=== PATIENT | female | born 1975 | race African-American/Black ===

== ENCOUNTER → 2016-09-30 | Outpatient (CLI) | payer BC, OTHER ==
--- NOTE | 2016-10-06 16:23 | WOMENS IMAGING REPORT ---
EXAM DESCRIPTION: BILAT SCREENING MAMMO W/CAD COMPLETED DATE/TIME: 09/30/2016 9:23 am REASON FOR STUDY: ROUTINE SCREENING; Z12.31 Z12.31 ENCNTR SCREEN MAMMOGRAM FOR MALIGNANT NEOPLASM O F CHERELLE COMPARISON: None. TECHNIQUE: Standard craniocaudal and mediolateral oblique views of each breast recorded using [employer] acquisition. LIMITATIONS: None. FINDINGS: No masses, calcifications or architectural distortion. No areas of suspicion. Read with the assistance of CAD. .[facility] - R2 Cenova Version 1.3 .[facility] Imaging - R2 Cenova Version 1.3 .[facility] - R2 Cenova Version 2.4 .[facility] [place] C[place]ova Version 2.4 .[facility] - R2 [employer] Version 9.2 IMPRESSION: NORMAL MAMMOGRAM. BIRADS 1. BREAST DENSITY: b. There are scattered areas of fibroglandular density. BIRAD: 1 NEGATIVE RECOMMENDATION: ROUTINE SCREENING COMMENT: The patient has been notified of the results by letter per SA requirements. Additional no tification policies are in place for contacting patient with suspicious or incomplete findings. Quality ID #[id number]: The [employer] recommends an annual screening mammogram for women aged 40 years or over. This facility utilizes a reminder system to ensure that all patients receive reminder letters, and/or direct phone calls for appointments. This includes reminders for routine scr eening mammograms, diagnostic mammograms, or other Breast Imaging Interventions when appropriate. Th is patient will be placed in the appropriate reminder system. The [employer] (ACR) has developed recommendations for screening MRI of the breast s in certain patient populations, to be used in conjunction with mammography. Breast MRI surveillanc e may be appropriate for women with more than 20% lifetime risk of developing breast cancer as deter mined by genetic testing, significant family history of the disease, or history of mantle radiation f or Hodgkins Disease. ACR Practice Guidelines 2008. TECHNICAL DOCUMENTATION: FINDING NUMBER: (1) ASSESSMENT: (1) JOB ID: [id number] [employer]- All Rights Reserved
== END ==
LOC: WI 10:36
PROVIDERS: ATTEND Physician Assistant
DX: Z12.31 Encounter for screening mammogram for malignant neoplasm of breast (principal)
CPT/HCPCS: 77067; G0202

== ENCOUNTER 2017-01-19 17:16 | Emergency (ER) | payer OTHER ==
[2017-01-19] MEDS ORDERED: ASPIRIN 81 MG TABLET, CHEWABLE PO ONE (17:51)
--- NOTE | 2017-01-19 18:21 | RADIOLOGY REPORT (SQ) ---
EXAM DESCRIPTION: CHEST SINGLE VIEW COMPLETED DATE/TIME: 01/19/2017 6:12 pm REASON FOR STUDY: bed 13 cp COMPARISON: 03/27/2014 EXAM PARAMETERS: NUMBER OF VIEWS: One view. TECHNIQUE: Single frontal radiographic view of the chest acquired. RADIATION DOSE: NA LIMITATIONS: None. FINDINGS: LUNGS AND PLEURA: No opacities, masses or pneumothorax. No pleural effusion. MEDIASTINUM AND HILAR STRUCTURES: No masses. Contour normal. HEART AND VASCULAR STRUCTURES: Heart stable in size. Normal vasculature. BONES: No acute findings. HARDWARE: Stable. OTHER: No other significant finding. IMPRESSION: NO ACUTE RADIOGRAPHIC FINDING IN THE CHEST. NO SIGNIFICANT CHANGE FROM PRIOR STUDY. TECHNICAL DOCUMENTATION: JOB ID: [id number] [facility]- All Rights Reserved
[2017-01-19 18:31] LABS: ABSOLUTE BASOPHILS # (AUTO) 0.1 10^3/uL (0.0-0.2); ABSOLUTE EOSINOPHILS # (AUTO) 0.6 10^3/uL (0.0-0.6); ABSOLUTE MONOCYTES (AUTO) 0.8 10^3/uL (0.1-1.4); ABSOLUTE NEUT (AUTO) 3.8 10^3/uL (1.7-8.2); BASOPHILS % (AUTO) 0.8 % (0-2); EOSINOPHILS % (AUTO) 6.7 % (0-6); HEMATOCRIT 39.8 % (36.0-47.0); HEMOGLOBIN 13.6 g/dL (12.0-15.5); LYMPHOCYTES % (AUTO) 36.7 % (13-45); MEAN CORPUSCULAR HEMOGLOBIN 30.9 pg (27.0-33.4); MEAN CORPUSCULAR HGB CONC 34.2 g/dL (32.0-36.0); MEAN CORPUSCULAR VOLUME 90 fl (80-97); MONOCYTES % (AUTO) 9.5 % (3-13); RED CELL DISTRIBUTION WIDTH 13.1 % (11.5-14.0); SEGMENTED NEUTROPHILS % (AUTO) 46.3 % (42-78); WHITE BLOOD COUNT 8.2 10^3/uL (4.0-10.5)
--- NOTE | 2017-01-19 18:48 | ER Document Report ---
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 Patient reports that she had an electrophysiologic procedure at [facility] 3 days ago to evaluate for recurrent PVCs. She states that nothing was found and that no ablation was performed. She states that she began to have symptoms immediately after completion of the procedure and that the symptoms have progressively worsened since that time. She contacted the on-call nurse for that group and was instructed to come to the emergency department for further evaluation. She denies a history of similar symptoms in the past. She states the chest pain is intermittent, nothing improves or worsens it. The shortness of breath is worsened by exertion. She denies any history of DVT or pulmonary emboli. No use of estrogen. No unilateral leg swelling. She denies any fever or constitutional symptoms. She has no ischemic cardiac history. TRAVEL OUTSIDE OF THE [place] IN LAST 30 DAYS: No - Related Data Allergies/Adverse Reactions: No Known Allergies Allergy (Unverified 01/19/17 17:34) Home Medications: Current Home Medications Albuterol Sulfate [Ventolin Hfa 8 gm Mdi (1 Mdi/ER Disp)] 2 puff IH ASDIR PRN [History] Sertraline HCl [Zoloft 50 mg Tablet] 50 mg PO DAILY 01/19/17 [History] Past Medical History - General Information source: Patient - Social History Smoking Status: Never Smoker Chew tobacco use (# tins/day): No Frequency of alcohol use: None Drug Abuse: None Lives with: Spouse/Significant other Family History: Reviewed & Not Pertinent Patient has suicidal ideation: No Patient has homicidal ideation: No Renal/ Medical History: Denies: Hx Peritoneal Dialysis Review of Systems - Review of Systems Notes: Constitutional: Negative for fever. HENT: Negative for sore throat. Eyes: Negative for visual changes. Cardiovascular: Positive for chest pain. Respiratory: Positive for shortness of breath. Gastrointestinal: Negative for abdominal pain, vomiting or diarrhea. Genitourinary: Negative for dysuria. Musculoskeletal: Negative for back pain. Skin: Negative for rash. Neurological: Negative for headaches, weakness or numbness. 10 point ROS negative except as marked above and in HPI. Physical Exam - Vital signs Vitals: Temp Pulse Resp BP Pulse Ox 98.8 F 77 16 131/77 H 97 01/19/17 17:42 01/19/17 17:42 01/19/17 17:42 01/19/17 17:42 01/19/17 17:42 Interpretation: Normal Notes: PHYSICAL EXAMINATION: GENERAL: Well-appearing, well-nourished and in no acute distress. HEAD: Atraumatic, normocephalic. EYES: Pupils equal round and reactive to light, extraocular movements intact, sclera anicteric, conjunctiva are normal. ENT: nares patent, oropharynx clear without exudates. Moist mucous membranes. NECK: Normal range of motion, supple without lymphadenopathy LUNGS: Breath sounds clear to auscultation bilaterally and equal. No wheezes rales or rhonchi. HEART: Regular rate and rhythm, 5 out of 6 systolic ejection murmur ABDOMEN: Soft, nontender, normoactive bowel sounds. No guarding, no rebound. No masses appreciated. EXTREMITIES: Normal range of motion, no pitting or edema. No cyanosis. NEUROLOGICAL: No focal neurological deficits. Moves all extremities spontaneously and on command. PSYCH: Normal mood, normal affect. SKIN: Warm, Dry, normal turgor, no rashes or lesions noted. Course - Re-evaluation Re-evalutation: 01/19/17 18:47 Presentation of chest pain and shortness of breath in an otherwise well appearing patient. Low clinical suspicion for ACS given clinical history, exam, EKG without ST elevations or depressions, and negative initial troponin. HEART score less than or equal to 3. PE also seems unlikely given clinical history, absence of tachycardia or dyspnea. Patient is PERC criteria negative. However, patient did recently have a procedure of a cardiac electrophysiology procedure and given the recent manipulation of her vasculature, will proceed with a d- dimer to further exclude an acute pulmonary embolus. A bedside echo estrella Ulrich does not demonstrate any evidence of a pericardial effusion or cardiac tamponade which was also in the differential given the recent electrophysiologic procedure. CXR without evidence of pneumothorax or pneumonia. No widened mediastinum. Aortic dissection also seems unlikely given history, symmetric pulses, CXR, and vitals. 01/19/17 19:37 D-dimer is slightly elevated at 0.[address] of the chest 01/19/17 21:25 CT does not demonstrate any evidence of an acute pulmonary embolus but does show a 4.5 cm ascending thoracic aortic aneurysm. I did contact [facility] where patient follows for her congenital cardiac deformities and spoke with the cardiac fellow Dr. Bernal. He did review prior studies which unfortunately have never included a CT of the chest in the past. However patient has a history of a diabetic aortic root. Patient does not have any ongoing chest pain or shortness of breath at this time. She has symmetric pressures in her bilateral upper extremities and I do suspect this ascending aortic aneurysm is a chronic issue that has not been previously identified. Patient will contact the clinic in the morning to follow-up with her congenital heart defect specialist has been provided a copy of her CT scan on a disc as well as the report. At this time will discharge with return precautions and follow-up recommendations. Verbal discharge instructions given a the bedside and opportunity for questions given. Medication warnings reviewed. Patient is in agreement with this plan and has verbalized understanding of return precautions and the need for primary care follow-up in the next 24-72 hours. - Vital Signs Vital signs: Temp Pulse Resp BP Pulse Ox 98.8 F 77 23 H 140/88 H 98 01/19/17 17:42 01/19/17 17:42 01/19/17 20:11 01/19/17 20:11 01/19/17 20:11 - Laboratory Result Diagrams: 01/19/17 18:16 01/19/17 18:16 Laboratory results interpreted by me: 01/19/17 01/19/17 18:16 18:16 Eosinophils % 6.7 H D-Dimer 0.60 H Discharge - Discharge Clinical Impression: Shortness of breath Aortic aneurysm without rupture Qualifiers: Aortic location: thoracic aorta Qualified Code(s): I71.2 - Thoracic aortic aneurysm, without rupture Condition: Fair Disposition: HOME, SELF-CARE Additional Instructions: Please contact tomorrow to discuss the thoracic aortic aneurysm that we discovered today on the CT scan of your chest. I have spoke with the cardiology service that you follow with and they are aware of these findings. You are being sent home with a copy of the CT scan report as well as a disc that contains all of the images from the CT scan so that your primary physicians can also review these studies. Please return to the emergency department if you have worsening of your pain, increased shortness of breath, pass out, or have any other symptoms that are worrisome to you. Referrals: RIGOBERTO GALLEGOS PA-C [Primary Care Provider] - Follow up as needed
[2017-01-19 18:55] LABS: ALANINE AMINOTRANSFERASE 27 U/L (9-52); ALBUMIN 4.3 g/dL (3.5-5.0); ALKALINE PHOSPHATASE 103 U/L (38-126); ANION GAP 12 (5-19); ASPARTATE AMINO TRANSFERASE 18 U/L (14-36); BILIRUBIN,DIRECT 0.4 mg/dL (0.0-0.4); BILIRUBIN,TOTAL 0.5 mg/dL (0.2-1.3); BLOOD UREA NITROGEN 16 mg/dL (7-20); CALCIUM 9.5 mg/dL (8.4-10.2); CARBON DIOXIDE 28 mmol/L (22-30); CHLORIDE 102 mmol/L (98-107); CREATINE KINASE 72 U/L (30-135); GLUCOSE 109 mg/dL (75-110); POTASSIUM 3.9 mmol/L (3.6-5.0); SODIUM 142.1 mmol/L (137-145)
[2017-01-19 19:11] LABS: TROPONIN I < 0.012 ng/mL
--- NOTE | 2017-01-19 20:17 | RADIOLOGY REPORT (SQ) ---
EXAM DESCRIPTION: CTA CHEST COMPLETED DATE/TIME: 01/19/2017 8:05 pm REASON FOR STUDY: SOB, CP, EVAL PE COMPARISON: None. TECHNIQUE: CT scan of the chest performed using helical scanning technique with dynamic intravenous contrast injection. Images reviewed with lung, soft tissue and bone windows. Reconstructed coronal and sagittal MPR images reviewed. Additional 3 dimensional post-processing performed to develop Maximal Intensity Projection images (DC P). All images stored on PACS. All CT scanners at this facility use dose modulation, iterative reconstruction, and/or weight based d osing when appropriate to reduce radiation dose to as low as reasonably achievable (ALARA). [facility]: Dose Right [facility]: CareDose [facility]: Dose Right [facility]: Teradose 4D [facility]: Beyond Oblivion CONTRAST TYPE AND DOSE: contrast/concentration: Isovue 370.00 mg/ml; Total Contrast Delivered: 71.0 ml; Total Saline Delivered: 50.1 ml Contrast bolus adequate for pulmonary arteries and aorta. RENAL FUNCTION: GFR > 60. RADIATION DOSE: CT Rad equipment meets quality standard of care and radiation dose reduction techniq ues were employed. CTDIvol: 15.8 - 19.8 mGy. DLP: 511 mGy-cm. . LIMITATIONS: None. FINDINGS: LUNGS AND PLEURA: No masses, infiltrates, pneumothorax. No pleural effusions, calcificati ons. AORTA AND GREAT VESSELS: Ascending thoracic aortic aneurysm measuring up to 4.5 cm in maximal diamete r. No acute aortic injury/dissection. HEART: No pericardial effusion. No significant coronary artery calcifications. PULMONARY ARTERIES: Postsurgical change involving the pulmonary trunk which is somewhat narrowed. No emboli visualized in the main pulmonary arteries or the segmental branches. HILAR AND MEDIASTINAL STRUCTURES: No identified masses or abnormal nodes. HARDWARE: Scattered vascular coils and surgical clips. Median sternotomy wires. UPPER ABDOMEN: No significant findings. Limited exam. THYROID AND OTHER SOFT TISSUES: No masses. No adenopathy. BONES: No acute or significant finding. 3D MIPS: Confirm above findings. OTHER: No other significant finding. IMPRESSION: NO ACUTE INTRATHORACIC PROCESS IDENTIFIED. NO PULMONARY EMBOLI. PATIENT APPEARS TO BE STATUS POST COMPLEX CARDIAC SURGERY WITH SURGICAL CLIPS AND VASCULAR COILS IN P LACE IS WELL IS POSTSURGICAL CHANGE INVOLVING THE PULMONARY ARTERY TRUNK. CORRELATE WITH CLINICAL/HARRIS RGICAL HISTORY. 4.5 CM ASCENDING THORACIC AORTIC ANEURYSM WITHOUT ACUTE INJURY. CORRELATE WITH PRIOR IMAGING IF AVAI LABLE TO ASSESS STABILITY. COMMENT: Quality ID # [id number]: Final reports with documentation of one or more dose reduction techniques (e.g., Automated exposure control, adjustment of the mA and/or kV according to patient size, use of iterative reconstruction technique) TECHNICAL DOCUMENTATION: JOB ID: [id number] [employer]- All Rights Reserved
[2017-01-19 21:59] VITALS: BP 128/96
--- NOTE | 2017-01-19 23:01 | EKG REPORT ---
SEVERITY:- ABNORMAL ECG - ACCELERATED JUNCTIONAL RHYTHM VS LONG FIRST DEGREE HEART BLOCK RIGHT BUNDLE BRANCH BLOCK PROBABLE LEFT VENTRICULAR HYPERTROPHY INFERIOR INFARCT, OLD : Confirmed by: Brianna Chatman 19-Jan-2017 23:00:18
== END 2017-01-19 22:10 | disposition home or self-care (01) ==
LOC: ER 17:16
DX: R06.02 Shortness of breath (principal); I71.2 Thoracic aortic aneurysm, without rupture; R07.9 Chest pain, unspecified
CPT/HCPCS: 36415; 71010; 71275; 80053; 82550; 82553; 84484; 85025; 85379; 93005; 93010; 99285